=== PATIENT | female | born 1980 | race Caucasian/White ===

== ENCOUNTER → 2018-01-27 | Outpatient (REF) | payer OTHER | LOC: M SFHCLERA 13:14 | DX: R53.81 Other malaise (principal); R11.10 Vomiting, unspecified; R19.7 Diarrhea, unspecified ==

== ENCOUNTER → 2019-04-14 | Outpatient (REF) | payer OTHER ==
[2019-04-15 00:52] LABS: CHLAMYDIA DNA AMPLIFICATION NEGATIVE (NEGATIVE); GC DNA AMPLIFICATION NEGATIVE (NEGATIVE)
== END ==
LOC: M LAB REF 10:24
PROVIDERS: ATTEND Physician Assistant Medical
DX: Z20.2 Contact with and (suspected) exposure to infections with a predominantly sexual mode of transmission (principal)